=== PATIENT | female | born 1975 | race Hispanic/Latino ===

== ENCOUNTER 2018-12-16 23:37 | Emergency (ER) | payer MEDICARE ==
[2018-12-17 00:36] LABS: Basophils # (Auto) 0.1 K/mm3 (0.0-0.1); Basophils % (Auto) 0.9 % (0.0-1.8); Eosinophils # (Auto) 0.1 K/mm3 (0.0-0.4); Eosinophils % (Auto) 1.1 % (0.0-4.3); Hematocrit 37.6 % (30.3-42.9); Hemoglobin 13.4 gm/dl (10.1-14.3); Lymphocytes # (Auto) 1.4 K/mm3 (1.2-5.4); Lymphocytes % (Auto) 22.1 % (13.4-35.0); Mean Corpuscular HGB Conc 36 % (30-34); Mean Corpuscular Volume 89 fl (79-97); Monocytes # (Auto) 0.6 K/mm3 (0.0-0.8); Platelet Count 420 K/mm3 (140-440); Red Blood Count 4.21 M/mm3 (3.65-5.03); Red Cell Distribution Width 15.2 % (13.2-15.2)
[2018-12-17 00:54] VITALS: BP 154/95
[2018-12-17 00:58] LABS: BUN/Creatinine Ratio 10; Blood Urea Nitrogen 6 mg/dL (7-17); Calcium 9.4 mg/dL (8.4-10.2); Hemolysis Index 9
--- NOTE | 2018-12-17 01:11 | Emergency Department Report ---
ED Medical Clearance HPI - General Chief complaint: Medical Clearance Stated complaint: MED CLEARANCE Time Seen by Provider: 12/17/18 00:46 Source: patient, EMS Mode of arrival: Stretcher - History of Present Illness Initial comments: Patient is 43 years old female with history of multiple sclerosis and polysubstance abuse. Patient presented to the ER requesting medical clearance for readmission to [facility] for drug detoxification. Patient denied any other symptoms. She denied any suicidal or pulsatile ideation. No visual or auditory hallucination. MD Complaint: medical clearance request Allergies/Adverse reactions: Allergies Allergy/AdvReac Type Severity Reaction Status Date / Time gabapentin Allergy Unknown Verified 12/16/18 23:47 Latex, Natural Rubber Allergy Unknown Verified 12/16/18 23:47 ED Review of Systems ROS: Stated complaint: MED CLEARANCE Other details as noted in HPI Comment: All other systems reviewed and negative Constitutional: denies: chills, fever Respiratory: denies: cough, orthopnea, shortness of breath, SOB with exertion, SOB at rest, wheezing Cardiovascular: denies: chest pain, palpitations Gastrointestinal: denies: abdominal pain, nausea, vomiting, diarrhea, constipation, hematemesis, hematochezia Genitourinary: denies: urgency, dysuria, frequency, hematuria, abnormal menses Neurological: denies: headache, weakness ED Past Medical Hx - Past Medical History Additional medical history: Multiple Sclerosis, Left leg paralysis - Surgical History Past Surgical History?: Yes Additional Surgical History: Hysterectomy, (Spinal Fusion L5, L4, S1) Right ear reconstructive surgery, Tonsilectomy - Social History Smoking Status: Current Every Day Smoker Substance Use Type: None ED Physical Exam - General Limitations: Physical Limitation General appearance: alert, in no apparent distress - Head Head exam: Present: atraumatic, normocephalic, normal inspection - Eye Eye exam: Present: normal appearance, PERRL - ENT ENT exam: Present: normal exam, normal orophraynx, mucous membranes moist - Neck Neck exam: Present: normal inspection, full ROM. Absent: tenderness, meningismus, lymphadenopathy, thyromegaly - Respiratory Respiratory exam: Present: normal lung sounds bilaterally - Cardiovascular Cardiovascular Exam: Present: regular rate, normal rhythm, normal heart sounds - GI/Abdominal GI/Abdominal exam: Present: soft, normal bowel sounds. Absent: distended, tenderness, guarding, rebound, rigid, organomegaly, mass, bruit, pulsatile mass, hernia - Extremities Exam Extremities exam: Present: normal inspection, full ROM, normal capillary refill. Absent: pedal edema, calf tenderness - Back Exam Back exam: Present: normal inspection, full ROM. Absent: tenderness, CVA tenderness (R), CVA tenderness (L), muscle spasm, paraspinal tenderness, vertebral tenderness - Neurological Exam Neurological exam: Present: alert, oriented X3 - Psychiatric Psychiatric exam: Present: normal mood. Absent: agitated, anxious, flat affect, manic, homicidal ideation, suicidal ideation - Skin Skin exam: Present: warm, intact, normal color ED Course Vital Signs 12/16/18 12/17/18 23:54 00:49 Temperature 98 F 98.7 F Pulse Rate 92 H 98 H Respiratory 16 18 Rate Blood Pressure 130/92 Blood Pressure 154/95 [Right] O2 Sat by Pulse 96 100 Oximetry ED Medical Decision Making - Lab Data Result diagrams: 12/17/18 00:07 12/17/18 00:07 - Medical Decision Making Patient is 43 years old female with history of multiple sclerosis and polysubstance abuse. Patient presented to the ER requesting medical clearance for readmission to [facility] for drug detoxification. Patient denied any other symptoms. She denied any suicidal or pulsatile ideation. No visual or auditory hallucination. Labs reviewed and is on unremarkable. Patient is medically cleared to be admitted to inpatient psychiatric unit. ED Disposition Clinical Impression: Polysubstance abuse, Medical clearance for psychiatric admission Disposition: DC-01 TO HOME OR SELFCARE Is pt being admited?: No Condition: Stable Instructions: Medical Clearance for Substance Abuse Treatment (ED) Additional Instructions: Patient is medically cleared to be admitted to a psychiatric unit. Referrals: LIZZIE COOLEY [Other] - 3-5 Days
[2018-12-17 01:20] LABS: Bilirubin,Urine NEG (Negative); Blood,Urine NEG (Negative); Color,Urine Yellow (Yellow); Mucus,Urine FEW /HPF; Urobilinogen,Urine < 2.0 mg/dL (<2.0)
[2018-12-17 01:28] LABS: Amphetamine Screen,Urine PRESUMPTIVE NEGATIVE; Benzodiazepines Screen,Urine PRESUMPTIVE NEGATIVE; Cocaine Screen,Urine PRESUMPTIVE NEGATIVE; Methadone Screen,Urine PRESUMPTIVE NEGATIVE; Opiate Screen,Urine PRESUMPTIVE NEGATIVE
[2018-12-17 02:04] LABS: Cannabinoid Screen,Urine PRESUMPTIVE POSITIVE
== END 2018-12-17 03:10 | disposition home or self-care (01) ==
LOC: ED 23:37
DX: F19.129 Other psychoactive substance abuse with intoxication, unspecified (principal); F17.200 Nicotine dependence, unspecified, uncomplicated; G35 Multiple sclerosis; Z90.710 Acquired absence of both cervix and uterus; Z91.040 Latex allergy status; Z91.09 Other allergy status, other than to drugs and biological substances; Z88.6 Allergy status to analgesic agent
CPT/HCPCS: 36415; 80048; 80307; 81001; 84703; 85025; 99283; G0480; 80320